=== PATIENT | female | born 1950 | race Caucasian/White ===

== ENCOUNTER 2017-06-04 18:43 | Emergency (ER) | payer MEDICARE ==
[~2017-06-04] VITALS: Ht 154.9 cm; Wt 81.7 kg
[2017-06-04] MEDS ORDERED: NEOPOLHCSU RIGHTEAR (19:13)
== END 2017-06-04 19:19 | disposition home or self-care (01) ==
LOC: ER 18:43
DX: H60.91 Unspecified otitis externa, right ear (principal)
CPT/HCPCS: 99282